=== PATIENT | male | born 1965 | race Two or more races ===

== ENCOUNTER 2025-07-10 01:28 | Emergency (ER) | payer MEDICAID, SELFPAY ==
[2025-07-10 01:34] VITALS: BP 166/103; PULSE 65; RESP 18; TEMP 36.6; O2SAT 96; BMI 29.7
--- NOTE | 2025-07-10 01:37 | XR_ITS ---
Examination: CT abdomen and pelvis without contrast. Coronal 3-D reconstructions. Sagittal 2-D reconstructions. Date and time of exam: July 10, 2025, 0204 hours COMPARISON: May 07, 2018 INDICATIONS: Left flank pain nausea vomiting beginning today CTDI: vol (mGy): 8.40 DLP: (mGycm): 524 Technique: Axial images of the abdomen have been obtained, 3 mm slice thickness Intravenous contrast material has not been administered. Low dose protocols were performed. One or more of the following dose reduction techniques were used; automated exposure control, adjustment of the mA and/or KV according to patient size, use of iterative reconstruction technique. Findings: No focal liver or splenic lesions Gallstones No pancreatic or adrenal mass Tiny renal cysts Normal appendix Minimal left hydronephrosis, with a 3 mm distal left ureteral calculus image 199 No bowel obstruction Contracted urinary bladder Moderate osteopenia IMPRESSION: Cholelithiasis. Negative for cholecystitis Minimal left hydronephrosis, 3 mm distal left ureteral calculus
[2025-07-10 02:01] LABS: Collection Type, Urine Clean Catch; Squamous Epithelial Cell,Urine 0 /hpf (0-5)
[2025-07-10 02:05] LABS: Basophils # (Auto) 0.1 Thou/mm3 (0.0-0.2); Basophils % (Auto) 1 % (0-2.5); Eosinophils # (Auto) 0.2 Thou/mm3 (0.0-0.5); Eosinophils % (Auto) 2 % (0-10); Hematocrit 43.8 % (41.0-53.0); Hemoglobin 14.6 g/dL (13.5-16.0); Immature Granulocytes Auto 0.10 Thou/mm3 (0.00-0.00); Lymphocytes # (Auto) 3.5 Thou/mm3 (1.0-4.8); Lymphocytes % (Auto) 33 % (10-50); Mean Corpuscular HGB Conc 33.3 g/dl (31.0-37.0); Mean Corpuscular Hemoglobin 30.0 pg (25.0-35.0); Mean Corpuscular Volume 90 fL (80-100); Monocytes # (Auto) 0.8 Thou/mm3 (0.0-0.8); Monocytes % (Auto) 8 % (0-12); Neutrophils # (Auto) 5.9 Thou/mm3 (1.8-7.7); Neutrophils % (Auto) 56 % (37-80); Nucleated Red Blood Cell # 0.00 Thou/mm3 (0.00-0.00); Nucleated Red Blood Cell % 0 /100 WBC (0); Platelet Count 275 Thou/mm3 (140-440); RDW Standard Deviation 44.4 fL (35.1-43.9); Red Blood Count 4.86 Miln/mm3 (4.50-5.90); White Blood Count 10.5 Thou/mm3 (3.8-10.6)
[2025-07-10 02:13] LABS: Bilirubin,Urine Negative (Negative); Blood,Urine 3+ (Negative); Clarity,Urine Turbid (Clear/Hazy); Color,Urine Yellow (Lt Yel-Yel); Glucose, Urine Negative (Negative); Hyaline Casts,Urine < 1 /hpf (0-1); Ketones,Urine Trace (Negative); Leukocyte Esterase,Urine Negative (Negative); Nitrite,Urine Negative (Negative); PH,Urine 5.5 (5.0-7.0); Protein,Urine 1+ (Neg - Trace); RBC,Urine 277 /hpf (0-3); Specific Gravity,Urine 1.032 (1.001-1.035); Urobilinogen,Urine 2.0 mg/dL (0.0-1.0); WBC,Urine 4 /hpf (0-5)
[2025-07-10 02:22] LABS: Alanine Aminotransferase 45 U/L (10-49); Albumin, Serum 4.3 gm/dL (3.4-4.8); Albumin/Globulin Ratio 1.5 (1.2-2.2); Alkaline Phosphatase 53 U/L (46-116); Anion Gap 10 (7-16); Aspartate Amino Transferase 26 U/L (0-34); BUN/Creatinine Ratio 12 Ratio (12-20); Bilirubin,Total 0.4 mg/dL (0.3-1.2); Blood Urea Nitrogen 13 mg/dL (9-23); Calcium 9.3 mg/dL (8.3-10.6); Calcium (Corrected) 9.3 mg/dL (8.5-10.1); Carbon Dioxide 27.0 mMol/L (20.0-31.0); Chloride 106 mMol/L (98-107); Creatinine (Component) 1.1 mg/dL (0.6-1.3); Estimated Creatinine Clearance 78.7 mL/min (>60); Globulin 2.9 gm/dL (2.3-3.5); Glucose 151 mg/dL (74-106); Lipase 40 U/L (12-53); Osmolality,Calculated 288 (275-295); Potassium 4.0 mMol/L (3.4-5.1); Sodium 143 mMol/L (136-145); Total Protein 7.2 gm/dL (5.7-8.2); eGFR > 60 See Note
--- NOTE | 2025-07-10 03:35 | PRELIM_ITS ---
CT abdomen and pelvis without intravenous contrast (axial sections with sagittal and coronal reformats) July 10, 2025 0204 hours Clinical History: Kidney stone. Comparison: May 07, 2018 Findings: There is a 3 mm obstructing calculus in the distal left ureter (coronal image 98) with mild hydroureteronephrosis and perinephric fat stranding. There are multiple cysts in bilateral kidneys, the largest in the right kidney measuring 2 cm. The urinary bladder is incompletely distended. There is mild p rostatomegaly. Fatty infiltration of the liver is noted. Multiple rim calcified calculi are noted within the gallbladder, without evidence of gallbladder wall thickening or pericholecystic fluid. The spleen, pancreas and adrenals appear unremarkable on this noncontrast study. No evidence of bowel obstruction. The appendix is within normal limits (coronal images 85-93). A moderate amount of fecal material is present in the colon. No free fluid or free air is seen. A small fat-containing umbilical hernia is present. The aorta and its branches demonstrate mild atheromatous calcification without evidence of aneurysm. Mild degenerative changes are identified in the spine. Bibasilar streaky atelectasis is present. There is mild wall thickening of the distal esophagus. Impression: 1. A 3 mm obstructing calculus in the distal left ureter with mild hydroureteronephrosis and perinephric fat stranding. 2. Cholelithiasis without evidence of acute cholecystitis. 3. Other findings as described above. Report Electronically Signed By: Abisai Renteria 07/10/2025 3:35:04 AM [EST]
--- NOTE | 2025-07-10 03:58 | EDNOTE_ITS ---
ED Abdominal Pain RME/HPI General Chief Complaint: Abdominal Pain Stated complaint: LEFT FLANK PAIN,N/V Time seen by provider: 07/10/25 01:37 Arrival date/time: 07/10/25 01:28 This is a case of 60-year-old male with no medical history came in in the emergency room due to left flank pain for 2 days radiating to the left side of abdomen with nausea vomiting worsening of the symptoms this patient decided to start consulted in the emergency room Limitations: no limitations Related Data Previous Rx's ?Medication ?Instructions ?Recorded naproxen 500 mg tablet 500 mg PO BID PRN pain #20 t abs 05/07/18 tamsulosin 0.4 mg capsule 0.4 mg PO QDAY #14 caps 04/22 03/09 tramadol 50 mg tablet 50 mg PO QID PRN pain #20 ta bs 05/07/18 cephalexin 500 mg capsule 500 mg PO Q8H #30 caps 07/10 hydrocodone 5 mg-acetaminophen 325 1 tab PO Q6H PRN pa in #16 tabs 07/10/25 mg tablet ondansetron 4 mg disintegrating 4 mg PO Q8H #20 tabs 1 tablet tamsulosin 0.4 mg capsule (Flomax) 0.4 mg PO QDAY #10 caps 07/10/25 Allergies Allergy/AdvReac Type Severity Reaction Status Date / Time No Known Allergies Allergy Verified 07/10/25 01:29 Review of Systems Review of Systems Systems Reviewed: All systems reviewed, normal except as documented Constitutional Constitutional: Reports system reviewed and no additional complaints, except as documented and Reports as per HPI Cardiovascular Cardiovascular: Reports system reviewed and no additional complaints, except as documented and Reports as per HPI Respiratory Respiratory: Reports system reviewed and no additional complaints, except as documented and Reports as per HPI Gastrointestinal Gastrointestinal: Reports system reviewed and no additional complaints, except as documented and Reports as per HPI Genitourinary Genitourinary: Reports system reviewed and no additional complaints, except as documented and Reports as per HPI Neurologic Neurologic: Reports system reviewed and no additional complaints, except as documented and Reports as per HPI Past Medical History Past Medical History NEUROLOGIC: Negative Neurological Disorders or Seizures CARDIAC: Negative Cardiac Disorders or Congestive Heart Failure RESPIRATORY: Negative Chronic Obstructive Pulmonary Disease (COPD) GASTROINTESTINAL: Negative Gastrointestinal Disorders or Hepatitis GENITOURINARY: Positive Genitourinary Disorders, Kidney Stones and Benign Prostatic Hyperplasia; Negative Renal Disease MUSCULOSKELETAL: Negative Musculoskeletal Disorders ENDOCRINE: Negative Endocrine Disorders, Diabetes Mellitus Type 1 or Diabetes Mellitus Type 2 HEMATOLOGIC: Negative Blood Disorders OTHER HISTORY: Negative Hospitalization, Shingles, Falls, Blood Transfusions, Blood Transfusion Reaction, Anesthesia Reactions, Chemotherapy, Radiation Therapy, MRSA or Cancer Surgical History SURGICAL: Negative Endocrine Surgery or Abdominal Surgery Social History SMOKING STATUS: Never smoker ED Exam General Limitations: Present no limitations General appearance: Present alert, in no apparent distress and other (Patient is awake alert oriented not in distress nontoxic looking well-hydrated well- nourished) Head Head exam: Present atraumatic, normocephalic and normal inspection Eye Eye exam: Present normal appearance, PERRL and EOMI ENT ENT exam: Present normal exam, normal oropharynx and mucous membranes moist Neck Neck exam: Present normal inspection, full ROM and trachea midline Chest Chest inspection: Present normal inspection and symmetric chest wall rise Respiratory Respiratory exam: Present normal lung sounds bilaterally; Absent respiratory distress, wheezes, stridor, accessory muscle use or prolonged expiratory phase Cardiovascular Cardiovascular exam: Present regular rate, normal rhythm and normal heart sounds; Absent bradycardia, tachycardia, irregular rhythm, systolic murmur or diastolic murmur Abdominal Exam Abdominal exam: Present soft, tenderness (Mild tenderness to the left flank) and normal bowel sounds; Absent distention, guarding, rebound, rigidity, diminished bowel sounds, hyperactive bowel sounds, hypoactive bowel sounds, organomegaly, obturator sign, Zarate's sign, Rovsing's sign, tenderness at McBurney's Point or hernia Extremities Exam Extremities exam: Present normal inspection and full ROM Back Exam Back exam: Present normal inspection and full ROM Neurological Exam Neurological exam: Present alert, oriented X3, CN II-XII intact, normal gait and reflexes normal; Absent motor sensory deficit Psychiatric Psychiatric exam: Present normal affect and normal mood Skin Skin exam: Present warm, dry, intact and normal color Course Quality Measures none Orders Category Date Time Status CT abdomen pelvis wo con Stat Exams 07/10/25 01:37 Taken CBC Stat Lab 07/10/25 01:50 Completed Comprehensive Metabolic Panel Stat Lab 07/10/25 01:50 Completed Lipase Stat Lab 07/10/25 01:50 Completed Urinalysis Stat Lab 07/10/25 01:15 Completed Ketorolac Inj [Toradol Inj] Med 07/10/25 03:52 Discontinued 30 mg IVP X1 ONE Morphine* Inj Med 07/10/25 03:52 Discontinued 4 mg IVP X1 ONE Ondansetron Odt [Zofran Odt] Med 07/10/25 03:52 Discontinued 4 mg PO X1 ONE Sodium Chloride 0.9% 1000 ml [Ns] 1,000 ml Med 07/10/25 03:52 Active IV 999 mls/hr Vital Signs Vital signs: Vital Signs Temperature 97.8 F 07/10/25 01:34 Pulse Rate 65 07/10/25 01:34 Respiratory Rate 18 07/10/25 01:34 Blood Pressure 166/103 H 07/10/25 01:34 Pulse Oximetry (%) 96 07/10/25 01:34 Oxygen Delivery Method Room Air 07/10/25 01:34 Oxygen saturation is 96% BP was rechecked after pain medication and noted to be 145/9 Abdominal Pain MDM MDM Narrative MDM Narrative:: This is a case of 60-year-old male with no medical history came in in the emergency room due to left flank pain for 2 days radiating to the left side of abdomen with nausea vomiting worsening of the symptoms this patient decided to start consulted in the emergency room physical examination patient is awake alert oriented not in distress nontoxic looking well-hydrated well-nourished noted a tenderness on the left flank but no guarding no rebound no rigidity neck normal active bowel sound negative psoas negative straight or negative Rovsing's 7 point send Zarate sign negative CVA tenderness excellent skin turgor patient blood test showed no leukocytosis no anemia kidney and liver function is normal no electrolyte imbalance urinalysis is normal lipase is normal CT scan of the abdomen showed a obstructive ureteral stone which is 3 mm and cholelithiasis patient was given a bolus of normal saline Flomax morphine and Toradol and Zofran which patient condition markedly improved pain was resolved patient will follow-up with PCP in 2 days for evaluation and to be referred to java support engineer or general surgeon for cholelithiasis and urologist for kidney stone and hydroureteronephrosis patient was discharged with cephalexin Flomax for obstructive ureteral stone and hydrocodone for pain worsening symptoms or any emergent concern he was advised to return the emergency room immediately or call [phone] He was also prescribed Zofran as needed for nausea vomiting Patient was discharged with comfortable condition walking with stable gait. Patient verbalized no further complains explained diagnosis and answered patient question. Patient is comfortable with the proposed management plan including the need to follow up with his/her primary care physician and any specialist if applicable Discussed patient for any urgent condition or worsening sx, He/She needed to go to emergency room immediately or call [phone]. Patient acknowledge the responsibility to follow up as instructed and to monitor her/his symptoms. For any persistence of the symptoms for more than 3-5 days return precaution advised. Discussed the result of the test and was given printed discharge instruction Patient data External records reviewed:: [facility] previous records Clinical information provided by:: patient Social determinants that could affect healthcare access:: none Patient has the following chronic illnesses:: None How is presenting disease/condition affected by chronic disease/condition?: no chronic disease Evaluation data The following diagnostics were reviewed and interpreted by me:: lab results and radiology exam(s) Lab and/or radiology exams considered but not ordered:: Reviewed Interpretation Summary: Reviewed Medications / Prescriptions Medications or Prescriptions considered but not ordered:: Given Medication administrations:: Medication Administration History Sodium Chloride (Ns) 1,000 mls @ 999 mls/hr IV .Q1H1M ONE Stop: 07/10/25 04:52 Discontinued Medications Ketorolac Tromethamine (Ketorolac Inj 30 Mg/Ml Vial) 30 mg IVP X1 ONE Stop: 07/10/25 03:53 Morphine Sulfate (Morphine Sulf Inj 4 Mg/Ml Vial) 4 mg IVP X1 ONE Stop: 07/10/25 03:53 Ondansetron HCl (Ondansetron Odt 4 Mg Tabrap) 4 mg PO X1 ONE; Protocol Stop: 07/10/25 03:53 Given Consultations Consultation(s) initiated? (list below): No Diagnosis Differential diagnosis abdominal pain: abdominal pain, acute appendicitis, calculus of kidney, diverticulitis, pancreatitis, small bowel obstruction and other (Ureteral stone cholelithiasis) Most likely diagnosis given after review of the tests above:: Ureteral stone cholelithiasis Admission Indicated Admission indicated?: not indicated Explain why admission is indicated or not indicated:: Not indicated Admission Request Was there a request for admission?: No Admission Attestation Admission request attestation: Not indicated Disposition Plan Disposition Plan: Discharge Discharge Attestation Discharge Attestation: The patient and all family members were given an opportunity to ask questions and understood the discharge instructions. Discharge instructions specifically effects, indications for sooner follow up or return to the emergency department, and the expected course of current diagnosis. Patient condition: Stable Discharge Plan Plan Patient Disposition: HOME (Self Care) Patient condition on transfer: Stable Prescriptions/Referrals Prescriptions/Med Rec: New hydrocodone-acetaminophen 5-325 mg tablet 1 tab PO Q6H MDD max 4 tabs per day PRN (Reason: pain) Qty: 16 0RF cephalexin 500 mg capsule 500 mg PO Q8H Qty: 30 0RF ondansetron 4 mg tablet,disintegrating 4 mg PO Q8H Qty: 20 0RF tamsulosin [Flomax] 0.4 mg capsule 0.4 mg PO QDAY Qty: 10 0RF No Action tramadol 50 mg tablet 50 mg PO QID PRN (Reason: pain) Qty: 20 0RF tamsulosin 0.4 mg capsule 0.4 mg PO QDAY Qty: 14 0RF naproxen 500 mg tablet 500 mg PO BID PRN (Reason: pain) Qty: 20 0RF Referrals: No Primary/Family,Physician [Primary Care Provider] - In 1 week Problem List Clinical Impression: Calculus, ureteral, Hydroureteronephrosis, Cholelithiasis Patient/Caregiver Discharge Instructions Education Materials: Treating Gallstones, Identifying Kidney Stones, Preventing Kidney Stones, Understanding Hydronephrosis Additional Instructions: Follow-up with your primary care physician in 2 days for reevaluation and to be referred to general surgeon and java support engineer for further evaluation and treatment of cholelithiasis you also need to be referred to urologist for further evaluation and treatment of ureteral stone and hydroureteronephrosis for any worsening symptoms or any emergent concerns such as blood in urine nausea vomiting fever chills or unable to urinate return to the emergency room immediately or call 911 worsening symptoms or any emergent condition return to the ER immediately or call [phone] take your medication as directed finish the course of antibiotic avoid fatty fried high cholesterol food Print Language: Panjabi (Andres) Stand Alone Forms: [employer] Award Info., Patient Portal Info Letter PA/BOBBIN CLEANER HAND Supervising Physician PA/BOBBIN CLEANER HAND Supervising Physician: Dr. Villegas
[2025-07-10] MEDS: SODIUM CHLORIDE 0.9% 1000 ML 1,000 ML 999 ML IV (04:08)
[2025-07-10] MEDS: ONDANSETRON ODT 4 MG TABRAP PO (04:09)
[2025-07-10] MEDS: MORPHINE SULF INJ 4 MG/ML VIAL IVP (04:09)
[2025-07-10] MEDS: KETOROLAC INJ 30 MG/ML VIAL IVP (04:09)
[2025-07-10 04:13] VITALS: PULSE 88; RESP 18
[2025-07-10 04:48] VITALS: BP 154/94; PULSE 95; RESP 18; O2SAT 95
== END 2025-07-10 05:20 | disposition home or self-care (01) ==
PROVIDERS: Nurse Practitioner Family; Emergency Provider Emergency Medicine
DX: K80.20 Calculus of gallbladder without cholecystitis without obstruction (principal); N13.2 Hydronephrosis with renal and ureteral calculous obstruction
CPT/HCPCS: 36415; 74176; 80053; 81001; 83690; 85025; 96361; 96374; 96375; 99283; J1885; J2270; J7030; Q0162

== ENCOUNTER 2025-07-11 16:35 | Emergency (ER) | payer MEDICAID, SELFPAY ==
[2025-07-11 17:11] VITALS: BP 125/78; PULSE 106; RESP 18; TEMP 36.7; O2SAT 96
--- NOTE | 2025-07-11 17:26 | XR_ITS ---
Examination: Retroperitoneal ultrasound, complete Technique: Multiple high resolution grayscale images of the retroperitoneum obtained, including kidneys and bladder. Exam date and time: July 11, 2025, 1732 hours INDICATIONS: Left flank pain this week, CT examination yesterday 3 mm distal left ureteral calculus FINDINGS: Right kidney 10.5 cm renal cortex 1.8 cm Multiple cysts, the largest 22 mm Left kidney 10.9 cm renal cortex 2.6 cm Minimal hydronephrosis 13 mm lateral cyst Contracted urinary bladder Prostatomegaly volume 46.3 cc no prostate nodules IMPRESSION: Minimal left hydronephrosis
--- NOTE | 2025-07-11 17:27 | PD.EDRME ---
Rapid Medical Screening Exam E Arrival date/time: 07/11/25 16:35 60-year-old male with a history of BPH presents to the emergency room with a chief complaint of left flank pain and dysuria x 3 days. Patient was seen here in the emergency room recently and was discharged with a diagnosis of ureteral calculi and cholelithiasis I have greeted and performed a focused initial assessment of this patient. A comprehensive ED assessment and evaluation of the patient, analysis of all test results, and completion of the medical decision making process will be conducted by additional ED providers. Chief Complaint: Fever Time Seen by Provider: 07/11/25 16:48 Vital signs: Vital Signs Temperature 98.1 F 07/11/25 17:11 Pulse Rate 106 H 07/11/25 17:11 Respiratory Rate 18 07/11/25 17:11 Blood Pressure 125/78 07/11/25 17:11 Pulse Oximetry (%) 96 07/11/25 17:11 Oxygen Delivery Method Room Air 07/11/25 17:11 Vital signs reviewed by provider: Yes
[2025-07-11 18:35] LABS: Collection Type, Urine Clean Catch
[2025-07-11 18:42] LABS: Basophils # (Auto) 0.0 Thou/mm3 (0.0-0.2); Basophils % (Auto) 0 % (0-2.5); Eosinophils # (Auto) 0.1 Thou/mm3 (0.0-0.5); Eosinophils % (Auto) 1 % (0-10); Hematocrit 41.2 % (41.0-53.0); Hemoglobin 13.8 g/dL (13.5-16.0); Immature Granulocytes Auto 0.06 Thou/mm3 (0.00-0.00); Lymphocytes # (Auto) 1.5 Thou/mm3 (1.0-4.8); Lymphocytes % (Auto) 15 % (10-50); Mean Corpuscular HGB Conc 33.5 g/dl (31.0-37.0); Mean Corpuscular Hemoglobin 29.6 pg (25.0-35.0); Mean Corpuscular Volume 88 fL (80-100); Monocytes # (Auto) 1.0 Thou/mm3 (0.0-0.8); Monocytes % (Auto) 10 % (0-12); Neutrophils # (Auto) 7.1 Thou/mm3 (1.8-7.7); Neutrophils % (Auto) 73 % (37-80); Nucleated Red Blood Cell # 0.00 Thou/mm3 (0.00-0.00); Nucleated Red Blood Cell % 0 /100 WBC (0); Platelet Count 247 Thou/mm3 (140-440); RDW Standard Deviation 43.8 fL (35.1-43.9); Red Blood Count 4.66 Miln/mm3 (4.50-5.90); White Blood Count 9.8 Thou/mm3 (3.8-10.6)
[2025-07-11 18:51] LABS: Bilirubin,Urine Negative (Negative); Blood,Urine 3+ (Negative); Color,Urine Yellow (Lt Yel-Yel); Glucose, Urine Negative (Negative); Ketones,Urine Negative (Negative); Leukocyte Esterase,Urine Negative (Negative); Nitrite,Urine Negative (Negative); PH,Urine 6.0 (5.0-7.0); Protein,Urine 1+ (Neg - Trace); RBC,Urine 217 /hpf (0-3); Specific Gravity,Urine 1.022 (1.001-1.035); Squamous Epithelial Cell,Urine < 1 /hpf (0-5); Urobilinogen,Urine 2.0 mg/dL (0.0-1.0); WBC,Urine 15 /hpf (0-5)
[2025-07-11 18:53] LABS: Clarity,Urine Cloudy (Clear/Hazy)
[2025-07-11 19:05] LABS: Alanine Aminotransferase 33 U/L (10-49); Albumin, Serum 4.2 gm/dL (3.4-4.8); Albumin/Globulin Ratio 1.4 (1.2-2.2); Alkaline Phosphatase 52 U/L (46-116); Anion Gap 7 (7-16); Aspartate Amino Transferase 21 U/L (0-34); BUN/Creatinine Ratio 7 Ratio (12-20); Bilirubin,Total 0.8 mg/dL (0.3-1.2); Blood Urea Nitrogen 11 mg/dL (9-23); Calcium 9.0 mg/dL (8.3-10.6); Calcium (Corrected) 9.0 mg/dL (8.5-10.1); Carbon Dioxide 26.0 mMol/L (20.0-31.0); Chloride 103 mMol/L (98-107); Creatinine (Component) 1.5 mg/dL (0.6-1.3); Globulin 3.0 gm/dL (2.3-3.5); Glucose 103 mg/dL (74-106); Lipase 28 U/L (12-53); Osmolality,Calculated 271 (275-295); Potassium 4.4 mMol/L (3.4-5.1); Sodium 136 mMol/L (136-145); Total Protein 7.2 gm/dL (5.7-8.2); eGFR 53 See Note
--- NOTE | 2025-07-11 19:38 | PD.EDABDPN ---
ED Abdominal Pain RME/HPI General Chief Complaint: Fever Stated complaint: FEVER, ZAVALETA, BACK PAIN Time seen by provider: 07/11/25 16:48 Arrival date/time: 07/11/25 16:35 RME / HPI RME / HPI narrative: 07/11/25 16:35 60-year-old male with a history of BPH presents to the emergency room with a chief complaint of left flank pain and dysuria x 3 days. Patient was seen here in the emergency room recently and was discharged with a diagnosis of ureteral calculi and cholelithiasis I have greeted and performed a focused initial assessment of this patient. A comprehensive ED assessment and evaluation of the patient, analysis of all test results, and completion of the medical decision making process will be conducted by additional ED providers. See MDM for Dr. Villegas's HPI Documentation. Related Data Previous Rx's ?Medication ?Instructions ?Recorded naproxen 500 mg tablet 500 mg PO BID PRN pain #20 tabs 05/07/18 tamsulosin 0.4 mg capsule 0.4 mg PO QDAY #14 caps 05/07/18 tramadol 50 mg tablet 50 mg PO QID PRN pain #20 tabs 05/07/18 cephalexin 500 mg capsule 500 mg PO Q8H #30 caps 07/10/25 hydrocodone 5 mg-acetaminophen 325 1 tab PO Q6H PRN pain #16 tabs 07/10/25 mg tablet ondansetron 4 mg disintegrating 4 mg PO Q8H #20 tabs 07/10/25 tablet tamsulosin 0.4 mg capsule (Flomax) 0.4 mg PO QDAY #10 caps 07/10/25 clotrimazole-betamethasone 1 1 applic topical BID 2 weeks #60 07/11/25 %-0.05 % topical cream grams ketorolac 10 mg tablet 10 mg PO Q8H PRN pain 5 days #10 07/11/25 tabs Allergies Allergy/AdvReac Type Severity Reaction Status Date / Time No Known Allergies Allergy Verified 07/11/25 16:37 Past Medical History Past Medical History GENITOURINARY: Positive Genitourinary Disorders, Kidney Stones and Benign Prostatic Hyperplasia ED Exam Narrative Physical exam: See MDM for Dr. Villegas's Physical Exam Documentation. Course Quality Measures none Orders Category Date Time Status Miscellaneous Nursing Order NOW Care 07/11/25 19:29 Completed US renal BI Stat Exams 07/11/25 17:26 Completed CBC Stat Lab 07/11/25 18:19 Completed CMP [Comprehensive Metabolic Panel] Stat Lab 07/11/25 18:19 Completed Lipase Stat Lab 07/11/25 18:19 Completed UA [Urinalysis] Stat Lab 07/11/25 18:29 Completed Urine Culture Stat Lab 07/11/25 18:29 Received Ketorolac Inj [Toradol Inj] Med 07/11/25 17:26 Discontinued 30 mg IM X1 ONE Ketorolac Inj [Toradol Inj] Med 07/11/25 19:26 Discontinued 30 mg IM X1 ONE Vital Signs Vital signs: Vital Signs Temperature 98.1 F 07/11/25 17:11 Pulse Rate 106 H 07/11/25 17:11 Respiratory Rate 18 07/11/25 17:11 Blood Pressure 125/78 07/11/25 17:11 Pulse Oximetry (%) 96 07/11/25 17:11 Oxygen Delivery Method Room Air 07/11/25 17:11 Abdominal Pain MDM [facility] Narrative [facility] Narrative:: This section includes all my notes and documentations, including HPI, PE, and ED course. Rogers Villegas MD HPI: 60-year-old male with Hx of BPH and Kidney Stones here with several days of left flank pain and subjective fever. No other complaints. ROS: All negative except as documented in HPI. Physical Exam: General: Alert and oriented. No acute distress when remaining still. Eyes: Conjunctivae and lids clear. ENT: No nasal congestion. Neck: Supple. Heart: RRR. Lungs: No respiratory distress. Good air movement. No rhonchi, wheezing, rales. Abdomen: Soft and nontender. Normal bowel sounds. No distension. No rebound or guarding. Back: No CVA tenderness. Skin: Warm and dry. Neuro: Alert and oriented X 3. I reviewed all diagnostic test results. My interpretation of Renal BL US report is minimal left hydronephrosis. Blood tests unremarkable. UA showed 217 RBC, 15 WBC. At this point, diagnoses include Kidney Stone of Left Side UTI Treatment here included Toradol 60 mg IM Significant improvement noted. Urine strainer dispensed. Recommended outpatient management. Based on my best medical judgment, made decision no further evaluation or treatment indicated at this time. Patient understands and agrees to the discharge instructions customized and printed, see below. Discharge Instructions from Dr. Villegas: --Your symptoms are due to a 3 mm right kidney stone.? It is outside the kidney.? It is trying to pass into your bladder.? --Increase oral fluid to flush your kidneys.? Maintain clear urine. if it's dark or yellow then increase oral fluid.? If you don't do this, you won't pass it.? --Take Flomax to help decrease spasms to increase the chance of passing it.? --Take Zofran as needed for nausea or vomiting. --Take Ketorolac/Toradol for pain control.? And [place] (take 2 pills at a time).? If you are in severe pain, you won't pass it.?? --Take Keflex (cephalexin) for urine infection. --Strain your urine so you can catch the stone when you pass it.? --See a private doctor on 07/12/2025 for recheck. Take the stone with you for analysis because certain stones can be prevented.? If you didn't pass it, ask for referral to see urologist.? Who will take the stone out for you. --Seek immediate medical care with fever over 100.4, persistent vomiting despite Zofran, intolerable pain, or with any concerns.?? Rogers Villegas MD Patient data External records reviewed:: [facility] previous records (Reviewed prior ED records from 07/10/25. Patient was seen for Calculus, ureteral.) Clinical information provided by:: patient Social determinants that could affect healthcare access:: none Patient has the following chronic illnesses:: BPH, Kidney Stones How is presenting disease/condition affected by chronic disease/condition?: exacerbated by Evaluation data The following diagnostics were reviewed and interpreted by me:: lab results and radiology exam(s) Lab and/or radiology exams considered but not ordered:: None Interpretation Summary: I reviewed all diagnostic test results. My interpretation of Renal BL US report is minimal left hydronephrosis. Blood tests unremarkable. UA showed 217 RBC, 15 WBC. Medications / Prescriptions Medications or Prescriptions considered but not ordered:: None Medication administrations:: Medication Administration History Discontinued Medications Ketorolac Tromethamine (Ketorolac Inj 60 Mg/2 Ml Vial) 30 mg IM X1 ONE Stop: 07/11/25 17:27 Last Admin: 07/11/25 20:11 Dose: Not Given Documented By: DIGNA Non-Admin Reason: Duplicate Medication on eMAR Ketorolac Tromethamine (Ketorolac Inj 30 Mg/Ml Vial) 30 mg IM X1 ONE Stop: 07/11/25 19:27 Last Admin: 07/11/25 20:09 Dose: 30 mg Documented By: DIGNA Toradol 60 mg IM Consultations Consultation(s) initiated? (list below): No Diagnosis Differential diagnosis abdominal pain: abdominal pain, calculus of kidney, gastroenteritis, small bowel obstruction and other (UTI, Cystitis) Most likely diagnosis given after review of the tests above:: Kidney Stone Left Side UTI Admission Indicated Admission indicated?: not indicated Explain why admission is indicated or not indicated:: With significant improvement and no condition needing emergent intervention, there was no indication for admission. Admission Request Was there a request for admission?: No Disposition Plan Disposition Plan: Discharge Discharge Attestation Discharge Attestation: The patient and all family members were given an opportunity to ask questions and understood the discharge instructions. Discharge instructions specifically effects, indications for sooner follow up or return to the emergency department, and the expected course of current diagnosis. Patient condition: Stable Discharge Plan Plan Patient Disposition: HOME (Self Care) Prescriptions/Referrals Prescriptions/Med Rec: New ketorolac 10 mg tablet 10 mg PO Q8H PRN (Reason: pain) 5 Days Qty: 10 0RF clotrimazole-betamethasone 1-0.05 % cream 1 applic topical BID 14 Days Qty: 60 1RF No Action tramadol 50 mg tablet 50 mg PO QID PRN (Reason: pain) Qty: 20 0RF tamsulosin 0.4 mg capsule 0.4 mg PO QDAY Qty: 14 0RF naproxen 500 mg tablet 500 mg PO BID PRN (Reason: pain) Qty: 20 0RF hydrocodone-acetaminophen 5-325 mg tablet 1 tab PO Q6H MDD max 4 tabs per day PRN (Reason: pain) Qty: 16 0RF cephalexin 500 mg capsule 500 mg PO Q8H Qty: 30 0RF ondansetron 4 mg tablet,disintegrating 4 mg PO Q8H Qty: 20 0RF tamsulosin [Flomax] 0.4 mg capsule 0.4 mg PO QDAY Qty: 10 0RF Problem List Clinical Impression: Kidney stone on left side, UTI (urinary tract infection) Patient/Caregiver Discharge Instructions Discharge Activity: activity as tolerated Education Materials: ED Bladder Infection, Male (Adult), ED Kidney Stone w/ Colic Additional Instructions: Discharge Instructions from Dr. Villegas: --Your symptoms are due to a 3 mm right kidney stone.? It is outside the kidney.? It is trying to pass into your bladder.? --Increase oral fluid to flush your kidneys.? Maintain clear urine. if it's dark or yellow then increase oral fluid.? If you don't do this, you won't pass it.? --Take Flomax to help decrease spasms to increase the chance of passing it.? --Take Zofran as needed for nausea or vomiting. --Take Ketorolac/Toradol for pain control.? And [place] (take 2 pills at a time).? If you are in severe pain, you won't pass it.?? --Take Keflex (cephalexin) for urine infection. --Strain your urine so you can catch the stone when you pass it.? --See a private doctor on 07/12/2025 for recheck. Take the stone with you for analysis because certain stones can be prevented.? If you didn't pass it, ask for referral to see urologist.? Who will take the stone out for you. --Seek immediate medical care with fever over 100.4, persistent vomiting despite Zofran, intolerable pain, or with any concerns.?? Print Language: Cecebi (Andres) Stand Alone Forms: [employer] Info., Patient Portal Info Letter
--- NOTE | 2025-07-11 19:42 | PD.EDFEVER ---
ED Fever RME/HPI General Chief Complaint: Fever Stated Complaint: FEVER, ZAVALETA, BACK PAIN Time Seen by Provider: 07/11/25 16:48 Arrival date/time: 07/11/25 16:35 RME / HPI RME / HPI Narrative: 07/11/25 16:35 60-year-old male with a history of BPH presents to the emergency room with a chief complaint of left flank pain and dysuria x 3 days. Patient was seen here in the emergency room recently and was discharged with a diagnosis of ureteral calculi and cholelithiasis I have greeted and performed a focused initial assessment of this patient. A comprehensive ED assessment and evaluation of the patient, analysis of all test results, and completion of the medical decision making process will be conducted by additional ED providers. See MDM for Dr. Villegas's HPI Documentation. Related Data Previous Rx's ?Medication ?Instructions ?Recorded naproxen 500 mg tablet 500 mg PO BID PRN pain #20 tabs 05/07/18 tamsulosin 0.4 mg capsule 0.4 mg PO QDAY #14 caps 05/07/18 tramadol 50 mg tablet 50 mg PO QID PRN pain #20 tabs 05/07/18 cephalexin 500 mg capsule 500 mg PO Q8H #30 caps 07/10/25 hydrocodone 5 mg-acetaminophen 325 1 tab PO Q6H PRN pain #16 tabs 07/10/25 mg tablet ondansetron 4 mg disintegrating 4 mg PO Q8H #20 tabs 07/10/25 tablet tamsulosin 0.4 mg capsule (Flomax) 0.4 mg PO QDAY #10 caps 07/10/25 ketorolac 10 mg tablet 10 mg PO Q8H PRN pain 5 days #10 07/11/25 tabs Allergies Allergy/AdvReac Type Severity Reaction Status Date / Time No Known Allergies Allergy Verified 07/11/25 16:37 Review of Systems Review of Systems Systems Reviewed: All systems reviewed, normal except as documented Past Medical History Past Medical History GENITOURINARY: Positive Genitourinary Disorders, Kidney Stones and Benign Prostatic Hyperplasia Physical Exam Narrative Physical exam: See MDM for Dr. Villegas's Physical Exam Documentation. ED Exam Narrative Physical exam: See MDM for Dr. Villegas's Physical Exam Documentation. Course Quality Measures none Orders Category Date Time Status Miscellaneous Nursing Order NOW Care 07/11/25 19:29 Active US renal BI Stat Exams 07/11/25 17:26 Completed CBC Stat Lab 07/11/25 18:19 Completed CMP [Comprehensive Metabolic Panel] Stat Lab 07/11/25 18:19 Completed Lipase Stat Lab 07/11/25 18:19 Completed UA [Urinalysis] Stat Lab 07/11/25 18:29 Completed Urine Culture Stat Lab 07/11/25 18:29 Received Ketorolac Inj [Toradol Inj] Med 07/11/25 17:26 Discontinued 30 mg IM X1 ONE Ketorolac Inj [Toradol Inj] Med 07/11/25 19:26 Discontinued 30 mg IM X1 ONE Vital Signs Vital signs: Vital Signs Temperature 98.1 F 07/11/25 17:11 Pulse Rate 106 H 07/11/25 17:11 Respiratory Rate 18 07/11/25 17:11 Blood Pressure 125/78 07/11/25 17:11 Pulse Oximetry (%) 96 07/11/25 17:11 Oxygen Delivery Method Room Air 07/11/25 17:[address] [facility] Narrative [facility] Narrative:: This section includes all my notes and documentations, including HPI, PE, and ED course. Rogers Villegas MD HPI: ROS: All negative except as documented in HPI. Physical Exam: General: Alert and oriented. Eyes: Conjunctivae and lids clear. ENT: No nasal congestion. Neck: Supple. Lungs: No respiratory distress. Skin: Warm and dry. Neuro: Alert and oriented X 3. Physical Exam: General: Alert and oriented. No acute distress when remaining still. Eyes: Conjunctivae and lids clear. ENT: No nasal congestion. Neck: Supple. Heart: RRR. Lungs: No respiratory distress. Good air movement. No rhonchi, wheezing, rales. Abdomen: Soft and nontender. Normal bowel sounds. No distension. No rebound or guarding. Back: No CVA tenderness. Skin: Warm and dry. Neuro: Alert and oriented X 3. Physical Exam: General: Alert and oriented. No acute distress. Eyes: Conjunctivae and lids clear. EOMI. PERRL. ENT: No nasal congestion. Pharynx normal. Tympanic membrane normal bilaterally. Neck: Supple. No lymphadenopathy. No JVD. Heart: RRR. Lungs: No respiratory distress. Good air movement. No rhonchi, wheezing, rales. Chest: No tenderness. Abdomen: Soft and nontender. Normal bowel sounds. No distension. No rebound or guarding. Back: No CVA tenderness. Legs: No clubbing, cyanosis, edema. Skin: Warm and dry. Neuro: Alert and oriented X 3. Cranial Nerves II-XII grossly intact. No peripheral motor deficits. Musculoskeletal: All major joints and bones are not tender with no limited ROM. I reviewed EMS and correction notes. I reviewed all diagnostic test results: My interpretation of the EKG is: My interpretation of the chest x-ray is: My review of the CT report is: Blood tests and urine tests Covid/Influenza At this point, diagnoses include: Treatment here included: Critical care Significant improvement Recommended Not yet done: I discussed the case with our hospitalist. About the presentation and exam and diagnostics and treatments here. And need of further care in the hospital. Will accept the patient. Not yet done: Based on my best medical judgment, made decision no further evaluation or treatment indicated at this time. Patient understands and agrees to the discharge instructions customized and printed, see below. Rogers Villegas MD Medications / Prescriptions Medication administrations:: Medication Administration History Discontinued Medications Ketorolac Tromethamine (Ketorolac Inj 60 Mg/2 Ml Vial) 30 mg IM X1 ONE Stop: 07/11/25 17:27 Ketorolac Tromethamine (Ketorolac Inj 30 Mg/Ml Vial) 30 mg IM X1 ONE Stop: 07/11/25 19:27 Discharge Plan Plan Patient Disposition: HOME (Self Care) Prescriptions/Referrals Prescriptions/Med Rec: New ketorolac 10 mg tablet 10 mg PO Q8H PRN (Reason: pain) 5 Days Qty: 10 0RF No Action tramadol 50 mg tablet 50 mg PO QID PRN (Reason: pain) Qty: 20 0RF tamsulosin 0.4 mg capsule 0.4 mg PO QDAY Qty: 14 0RF naproxen 500 mg tablet 500 mg PO BID PRN (Reason: pain) Qty: 20 0RF hydrocodone-acetaminophen 5-325 mg tablet 1 tab PO Q6H MDD max 4 tabs per day PRN (Reason: pain) Qty: 16 0RF cephalexin 500 mg capsule 500 mg PO Q8H Qty: 30 0RF ondansetron 4 mg tablet,disintegrating 4 mg PO Q8H Qty: 20 0RF tamsulosin [Flomax] 0.4 mg capsule 0.4 mg PO QDAY Qty: 10 0RF Problem List Clinical Impression: Kidney stone on left side, UTI (urinary tract infection) Patient/Caregiver Discharge Instructions Discharge Activity: activity as tolerated Education Materials: ED Bladder Infection, Male (Adult), ED Kidney Stone w/ Colic Additional Instructions: Discharge Instructions from Dr. Villegas: --Your symptoms are due to a 3 mm right kidney stone.? It is outside the kidney.? It is trying to pass into your bladder.? --Increase oral fluid to flush your kidneys.? Maintain clear urine. if it's dark or yellow then increase oral fluid.? If you don't do this, you won't pass it.? --Take Flomax to help decrease spasms to increase the chance of passing it.? --Take Zofran as needed for nausea or vomiting. --Take Ketorolac/Toradol for pain control.? And [place] (take 2 pills at a time).? If you are in severe pain, you won't pass it.?? --Take Keflex (cephalexin) for urine infection. --Strain your urine so you can catch the stone when you pass it.? --See a private doctor on 07/12/2025 for recheck. Take the stone with you for analysis because certain stones can be prevented.? If you didn't pass it, ask for referral to see urologist.? Who will take the stone out for you. --Seek immediate medical care with fever over 100.4, persistent vomiting despite Zofran, intolerable pain, or with any concerns.?? Print Language: Jacobojabi (Andres) Stand Alone Forms: [employer] Info., Patient Portal Info Letter
[2025-07-11] MEDS: KETOROLAC INJ 30 MG/ML VIAL IM (20:09)
--- NOTE | 2025-07-11 20:56 | PC.NURSE ---
PT CALLED FROM [facility] NO ANSWER
--- NOTE | 2025-07-11 21:06 | PC.NURSE ---
PT CALLED BACK FROM [facility] NO ANSWER
[2025-07-11 21:15] VITALS: RESP 18
== END 2025-07-11 21:16 | disposition home or self-care (01) ==
LOC: SERX 19:55
PROVIDERS: Nurse Practitioner Family; Emergency Provider Emergency Medicine
DX: N13.6 Pyonephrosis (principal); N40.0 Benign prostatic hyperplasia without lower urinary tract symptoms
CPT/HCPCS: 36415; 76770; 80053; 81001; 83690; 85025; 87086; 96372; 99283; J1885